=== PATIENT | female | born 1970 | race Caucasian/White ===

== ENCOUNTER → 2017-11-30 15:40 | Outpatient (CLI) | payer BC, SELFPAY ==
--- NOTE | 2017-11-30 15:45 | RAD_ITS ---
STUDY: X-RAY - ABDOMEN/PELVIS REASON FOR EXAM: Female, 47 years old. Left lower quadrant pain. History of stones. TECHNIQUE: AP supine and upright views of the abdomen and pelvis. COMPARISON: None. FINDINGS: Normal visualized lung bases. There is an abundance of fecal material throughout the colon. There is no demonstrated free abdominal air. The visualized liver, spleen and kidneys are grossly normal in size and morphology. Normal soft tissue structures. Normal visualized osseous structures. RAD/Abd Inc Decub and/or Erect IMPRESSION: Extensive fecal retention throughout the colon. No evidence of renal stones. Electronically Signed: Brock Knapp DO at 16:33 EST Tel , Service support ,
[2017-11-30 17:43] LABS: Absolute Lymphocyte Count 1.68 X10^3/ul (0.83-4.51); Absolute Neutrophil Count 4.1 X10^3/uL (2.0-7.7); Basophil# 0.06 X10^3/uL; Basophil% 0.9 % (0-1); Eosinophil# 0.24 X10^3/uL; Eosinophils% 3.6 % (0-5); Hematocrit 40.7 % (37-47); Hemoglobin 12.9 g/dl (12.0-15.0); Lymphocyte # 1.68 X10^3/ul (4.0); Lymphocyte % 25.4 % (19-41); Mean Corp Hgb Conc 31.7 g/gl (32-36); Mean Corpuscular Hgb 32.2 pg (27.0-32.0); Mean Corpuscular Volume 101.5 fL (81-99); Mean Platelet Vol. 10.2 fl (6.2-12.0); Monocyte# 0.56 X10^3/uL; Monocyte% 8.5 % (0-10); Neutrophil # 4.06 X10^3/uL (2.7-7.7); Neutrophil % 61.4 % (47-70); Platelet Count 306 K/mm3 (150-450); RBC Distribution Width CV 13.3 % (11.6-14.6); Red Blood Count 4.01 M/mm3 (4.2-5.4); White Blood Count 6.6 K/mm3 (4.4-11.0)
[2017-11-30 17:48] LABS: POSITIVE COUNT NO; POSITIVE DIFFERENTIAL NO; POSITIVE MORPHOLOGY NO
[2017-11-30 18:02] LABS: ALB/GLOB Ratio 0.9 RATIO (0.9-2.4); AST(SGOT) 15 U/L (15-37); Alanine Aminotransfer ALT/SGPT 23 U/L (13-56); Albumin, Serum 3.5 g/dL (3.2-5.0); Alkaline Phosphatase 107 U/L (45-117); Anion Gap 9 (5-15); BUN 16 mg/dL (7-18); BUN/Creat Ratio 17.7 RATIO (10-20); Chloride 108 mmol/L (98-107); EST Glomerular Filtration Rate 70 mL/min (>60); Est Glom Filt Rate - Afr Amer 85 mL/min (>60); Globulin 3.8 g/dL (2.2-4.2); Glucose 87 mg/dL (70-110); Potassium 4.5 mmol/L (3.5-5.1); Protein, Total 7.3 g/dL (6.4-8.2); Sodium Level 142 mmol/L (136-145)
== END ==
PROVIDERS: Family Provider Family Medicine; PCP Family Medicine; Visit Provider Family Medicine
DX: R10.9 Unspecified abdominal pain (principal)
CPT/HCPCS: 36415; 74019; 80053; 85025

== ENCOUNTER 2018-03-05 12:48 | Emergency (ER) | payer BC, SELFPAY ==
[2018-03-05] VITALS (7 sets, daily range): BP systolic 113–146; BP diastolic 64–93; PULSE 81–112; RESP 16–20; TEMP 36.8; O2SAT 93–98; BMI 28.2
[2018-03-05] MEDS: Racepinephrine HCl 0.5 ML VIAL.NEB. INHALATION (12:49)
[2018-03-05] MEDS: MethylPREDNISolone 125 MG/2 ML Vial IV (13:03)
--- NOTE | 2018-03-05 13:47 | ED.DCSUM_ITS ---
- ER Visit Summary Date of Service: 03/05/18 Chief Complaint: Allergic reaction History of Present Illness: The patient is a 47 F who presents with anaphylactic reaction that began today. Patient ate a cup cake and then noticed there was a knot in the cupcake. 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 Patient immediately developed some shortness of breath and difficulty swallowing. Patient states it felt like her throat was closing up. Patient was given 2 EpiPen injections and a dose of oral Benadryl. Patient was starting to feel better. Patient states that she felt like her throat was getting worse. EMS then administered 0.5 mg of epinephrine subcu. Patient was feeling better upon arrival to the emergency department. Patient stated that it felt like her throat was opening back up. Physical Examination: Vital signs show temperature 98.2 pulse 107 respiratory rate of 20 and pulse ox 98% on room air. Patient was in mild respiratory distress. Oral mucosa is pink and moist. Oropharynx is clear. Airway is patent. Neck is supple. There is no JVD noted. Heart was regular and tachycardic. Lungs were diminished bilaterally. There is good respiratory effort noted. Abdomen is soft. Bowel sounds are normal. There is no tenderness. Skin is warm and dry. There are a few urticaria noted over the face. The remaining physical exam is within normal limits. Emergency Department Course and Treatment: Patient was given Solu-Medrol and Pepcid here. Patient was feeling better on reevaluation. After approximately 3 hours of observation the patient felt like her throat was swelling again. Patient was given a dose of Benadryl. Patient will continued to be observed. Impression: Anaphylaxis This note was generated with [employer] dictation software. It may contain incorrect words, spelling, and punctuation that were not noted in review of the chart prior to signing ED Disposition - Plan for ED Patient: Chief Complaint: Allergic Reaction Diagnosis: Anaphylaxis due to food Referrals: Jay Jay Reid MD [Primary Care Provider] -
[2018-03-05] MEDS: Acetaminophen 500 MG Tablet 1000 MG PO (14:41)
[2018-03-05] MEDS: DiphenhydrAMINE 50 MG/ML Syringe 25 MG IV (16:37)
--- NOTE | 2018-03-05 18:43 | ED.DCSUM_ITS ---
- ER Visit Summary Date of Service: 03/05/18 Chief Complaint: [Addendum to initial dictation by Dr. Parag Benton] History of Present Illness: The patient is a 47 F [presented with an anaphylactic-like reaction to nuts and food. Care of patient turned over to me after patient had been here for about 4 hours awaiting continued observation after patient being medicated with Benadryl as well as steroids and EpiPen. After approximately 6 hours of total observation patient feeling completely resolved at this time is asymptomatic. Patient will be dispensed an EpiPen and I will write a prescription for prednisone for 3 days.] Physical Examination: [] Test Results: [] Emergency Department Course and Treatment: [] Treatment Plan: [] Disposition: [Discharged home stable condition] Impression: [Allergic reaction to nuts This note was generated with [employer] dictation software. It may contain incorrect words, spelling, and punctuation that were not noted in review of the chart prior to signing ED Disposition - Plan for ED Patient: Chief Complaint: Allergic Reaction Diagnosis: Anaphylaxis due to food Referrals: Jay Jay Reid MD [Primary Care Provider] -
--- NOTE | 2018-03-05 18:43 | ED.DEP ---
ED Disposition - Plan for ED Patient: Chief Complaint: Allergic Reaction Diagnosis: Anaphylaxis due to food Instructions: ED Allergic React Food Prescriptions: Prednisone [Deltasone] 20 mg PO BID #6 tab Referrals: Jay Jay Reid MD [Primary Care Provider] - 3-5 Days
== END 2018-03-05 19:13 | disposition home or self-care (01) ==
PROVIDERS: Emergency Provider Emergency Medicine; Family Provider Family Medicine; PCP Family Medicine
DX: T78.05XA Anaphylactic reaction due to tree nuts and seeds, initial encounter (principal); Z87.892 Personal history of anaphylaxis
CPT/HCPCS: 94640; 96365; 96372; 96375; 99285; J7030; A4216

== ENCOUNTER 2018-06-11 12:26 | Inpatient (IN) | payer BC, SELFPAY ==
[2018-06-11] VITALS (29 sets, daily range): BP systolic 105–159; BP diastolic 65–121; PULSE 78–113; RESP 12–23; TEMP 36.8–37; O2SAT 96–100; BMI 34.4; BMI 32.8
[2018-06-11] MEDS: Rocuronium Bromide 50 MG/5 ML Vial 100 MG IV (12:30)
[2018-06-11] MEDS: Propofol 10MG/Ml 1,000 MG/100 ML Bottle 2.901 MG CONT INF ×3 (12:47→21:03)
[2018-06-11 12:57] LABS: Absolute Neutrophil Count 4.6 X10^3/uL (2.0-7.7); Basophil# 0.02 X10^3/uL; Basophil% 0.2 % (0-1); Eosinophils% 2.4 % (0-5); Hematocrit 45.3 % (37-47); Hemoglobin 14.6 g/dl (12.0-15.0); Lymphocyte % 35.5 % (19-41); Mean Corp Hgb Conc 32.2 g/gl (32-36); Mean Corpuscular Hgb 31.8 pg (27.0-32.0); Mean Corpuscular Volume 98.7 fL (81-99); Mean Platelet Vol. 9.1 fl (6.2-12.0); Monocyte# 0.64 X10^3/uL; Monocyte% 7.6 % (0-10); Neutrophil # 4.57 X10^3/uL (2.7-7.7); Neutrophil % 54.1 % (47-70); Platelet Count 319 K/mm3 (150-450); RBC Distribution Width CV 13.1 % (11.6-14.6); RBC Distribution Width SD 47.2 fl (35.1-43.9); Red Blood Count 4.59 M/mm3 (4.2-5.4); White Blood Count 8.5 K/mm3 (4.4-11.0)
[2018-06-11 12:58] LABS: POSITIVE COUNT NO; POSITIVE DIFFERENTIAL NO; POSITIVE MORPHOLOGY NO
[2018-06-11 13:04] LABS: Anion Gap 8 (5-15); BUN 13 mg/dL (7-18); BUN/Creat Ratio 11.3 RATIO (10-20); Calcium,Total 8.9 mg/dL (8.5-10.1); Chloride 103 mmol/L (98-107); Creatinine, Serum 1.15 mg/dL (0.55-1.02); EST Glomerular Filtration Rate 53 mL/min (>60); Est Glom Filt Rate - Afr Amer 64 mL/min (>60); Glucose 103 mg/dL (74-106); Potassium 3.9 mmol/L (3.5-5.1); Sodium Level 138 mmol/L (136-145)
--- NOTE | 2018-06-11 13:07 | ED.VISSUMM ---
- ER Visit Summary Date of Service: 06/11/18 Chief Complaint: Anaphylaxis History of Present Illness: The patient is a 47 F who presents with anaphylaxis. Patient ate a miranda pit today. 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 He evaluated the patient and gave her 3 rounds of epinephrine and Benadryl. She was having stridor at that time and facial swelling. He then called EMS to transport the patient here. She does have a history of a nut allergy and the patient has had to be intubated before because of this. She gives minimal history as she is becoming lethargic. Physical Examination: Vital signs are reviewed and are significant for tachycardia and tachypnea. HEENT exam reveals no significant tongue swelling. She does have facial swelling. There is positive stridor with tracheal tug. Heart is tachycardic and regular rhythm without murmurs. Lungs have bilateral wheezing. Abdomen soft nontender. Neurologic exam reveals no acute findings except for some lethargy Test Results: Pending Emergency Department Course and Treatment: IV was established. Patient was given 1 intramuscular epinephrine here via EpiPen. She was then sedated with ketamine and rocuronium. She was intubated with a 7-0 endotracheal tube. This was done by using a glide scope. [place] scope visualization did not show any epiglottic or laryngeal cord edema. She was started on epinephrine drip. Propofol for sedation. Patient was discussed with Dr. Jason and Dr. Reyna for admission to the ICU Treatment Plan: Admit to the ICU. Patient was also given Pepcid Disposition: Admit Impression: Anaphylaxis This note was generated with [employer] dictation software. It may contain incorrect words, spelling, and punctuation that were not noted in review of the chart prior to signing ED Disposition - Plan for ED Patient: Chief Complaint: Shortness of Breath Referrals: Jay Jay Reid MD [Primary Care Provider] -
--- NOTE | 2018-06-11 13:10 | ED.DCSUM_ITS ---
- ER Visit Summary Date of Service: 06/11/18 Chief Complaint: Anaphylaxis History of Present Illness: The patient is a 47 F who presents with anaphylaxis. Patient ate a miranda pit today. 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 He evaluated the patient and gave her 3 rounds of epinephrine and Benadryl. She was having stridor at that time and facial swelling. He then called EMS to transport the patient here. She does have a history of a nut allergy and the patient has had to be intubated before because of this. She gives minimal history as she is becoming lethargic. Physical Examination: Vital signs are reviewed and are significant for tachycardia and tachypnea. HEENT exam reveals no significant tongue swelling. She does have facial swelling. There is positive stridor with tracheal tug. Heart is tachycardic and regular rhythm without murmurs. Lungs have bilateral wheezing. Abdomen soft nontender. Neurologic exam reveals no acute findings except for some lethargy Test Results: Pending Emergency Department Course and Treatment: IV was established. Patient was given 1 intramuscular epinephrine here via EpiPen. She was then sedated with ketamine and rocuronium. She was intubated with a 7-0 endotracheal tube. This was done by using a glide scope. [place] scope visualization did not show any epiglottic or laryngeal cord edema. She was started on epinephrine drip. Propofol for sedation. Patient was discussed with Dr. Jason and Dr. Reyna for admission to the ICU Treatment Plan: Admit to the ICU. Patient was also given Pepcid Disposition: Admit Impression: Anaphylaxis This note was generated with [employer] dictation software. It may contain incorrect words, spelling, and punctuation that were not noted in review of the chart prior to signing ED Disposition - Plan for ED Patient: Chief Complaint: Shortness of Breath Referrals: Jay Jay Reid MD [Primary Care Provider] -
[2018-06-11 13:35] LABS: Base Excess -1 mmol/L (-2 to +2); Bicarbonate 24.7 mmol/L (22-26); Blood Gas Specimen Type ART; FI02 50; Mode A-C; O2 Delivery Device Vent; PEEP 5; PO2 118 mmHG (75-100); RR 16; SITE R Radial; SO2 98 % (95-99); Time Given 1326; Total Carbon Dioxide 26 mmol/L; Vt 450; pCO2 45.1 mmHg (35-45); pH 7.35 (7.35-7.45)
--- NOTE | 2018-06-11 13:41 | RAD_ITS ---
STUDY: X-RAY CHEST REASON FOR EXAM: Female, 47 years old. Cough TECHNIQUE: Single frontal view COMPARISON: April 05, 2014 FINDINGS: Endotracheal tube with tip 25 mm above the dayana. Nasogastric tube extends into the upper abdomen with its sidehole at the distal esophagus and should be advanced another 8 to 9 cm. The lungs are not fully expanded. Possible left perihilar interstitial infiltrate. Normal size heart. Normal mediastinum and saadia. Slightly prominent central pulmonary arteries. Normal visualized aortic arch and descending thoracic aorta. Normal visualized thoracic spine. Normal visualized ribs, clavicles, and shoulders. There is no demonstrated abnormality of the visualized soft tissue structures of the upper abdomen. RAD/Chest 1 View (Portable) IMPRESSION: Possible left perihilar interstitial infiltrate. Slightly prominent central pulmonary vasculature. Nasogastric tube should be advanced another 8 to 9 cm. Electronically Signed: Luis Sidhu DO at 13:45 EDT Tel [phone], Service support ,
--- NOTE | 2018-06-11 13:48 | PCM.HP.STD ---
Problem List (1) Anaphylaxis Status: Acute History of Present Illness Date of Admission: 06/11/18 Chief Complaint: anaphylaxis The patient is a 47 year old F was at work and then had miranda with the seed and started having in and lactic reaction. Patient received epinephrine and put on a drip in the emergency room. Patient was intubated for airway protection. Patient did receive Pepcid as well. Patient's son is at bedside and stated the patient had a reaction to some carrot cake that had walnuts in it about 3 months ago. Prior to that, patient had not had a severe allergic reaction about 10 years. [] Past Medical History Allergies latex Allergy (Verified 03/05/18 12:53) Unknown peanut Allergy (Verified 03/05/18 12:53) Anaphylaxis Home Medications: Ambulatory Orders Medication Instructions Recorded Fluoxetine HCl [Prozac] 60 mg PO DAILY 04/30/17 Warfarin [Coumadin ([facility]KC)] 2 mg PO DAILY 04/30/17 Bupropion HCl [Wellbutrin Sr] 150 mg PO BID 03/05/18 Surgical History: noncontributory Smoking Status: Never smoker Review of Systems Comment: Unable to obtain accurate review of systems, past medical history, past surgical history, social history, family history as the patient is intubated and sedated at this time. VTE Information - Inpt Only VTE Present on Admission: No VTE Mechan Device Prophylaxis: [facility] [place] Prophylaxis ordered?: Yes Patient Problems: Active and Suspected Problems Anaphylaxis (Acute) - Physical Exam General: - - Intubated and sedated HEENT: Atraumatic, Normocephalic Oral: - - Endotracheal tube in place Neck: Negative Hepatojugular Reflux, Thyroid Normal Size and Texture Lungs: Clear to auscultation, Diminished Cardiovascular: Regular rate, Regular Rhythm, Normal S1, Normal S2, No murmurs Abdomen: Bowel Sounds Present, Soft, Non Tender, Non-Distended, No Hepato-splenomegaly Extremities: No edema, No Calf Tenderness Skin: No rashes, No breakdown Musculoskeletal: No Tenderness to Palpation of Joints or Extremities, No Muscle Wasting Neurological: - - No clonus DTRs are 1 out 4 and lower extremities bilaterally Psych/Mental Status: - Vital Signs Pulse Resp BP Pulse Ox 92 16 139/85 H 100 06/11/18 13:34 06/11/18 13:34 06/11/18 13:34 06/11/18 13:34 Oxygen Delivery Method Mechanical Ventilator Weight: 96.7 kg Body Mass Index (BMI) 34.4 Laboratory Tests Past 24 Hrs 06/11/18 06/11/18 06/11/18 12:46 12:46 13:27 WBC 8.5 RBC 4.59 Hgb 14.6 Hct 45.3 MCV 98.7 MCH 31.8 MCHC 32.2 RDW 13.1 RDW Differential 47.2 H Plt Count 319 MPV 9.1 Immature Gran % (Auto) 0.200 Neut % (Auto) 54.1 Lymph % (Auto) 35.5 [place] % (Auto) 7.6 Eos % (Auto) 2.4 Baso % (Auto) 0.2 Absolute Neuts (auto) 4.6 Absolute Lymphs (auto) 3.00 Total Counted Not Reportable Specimen Type ART Sample Site R Radial pH 7.35 Bicarbonate Actual 24.7 POC Total CO2 26 Base Excess -1 O2 Saturation 98 O2 % 50 ABG pCO2 45.1 H ABG pO2 118 H Respiration Rate 16 O2 Delivery Device Vent Vent Mode A-C Tidal Volume 450 POC PEEP 5 Blood Gas Notified Whom ED MD Blood Gas Notified Time 1326 Sodium 138 Potassium 3.9 Chloride 103 Carbon Dioxide 27.0 Anion Gap 8 BUN 13 Creatinine 1.15 H Estim Creat Clear Calc 55.40 Est GFR (MDRD) Af Amer 64 Est GFR (MDRD) Non-Af 53 L BUN/Creatinine Ratio 11.3 Glucose 103 Calcium 8.9 Chest x-ray reviewed and showed endotracheal tube in place. Bilateral patchy infiltrates. Assessment/Plan All Active Problems Anaphylaxis (Acute) 1. Anaphylaxis Secondary to miranda seed Emergency room, patient received an EpiPen, Pepcid and an epinephrine drip. Patient was intubated for airway protection Will continue with the epinephrine drip plus Solu-Medrol plus scheduled Pepcid and Benadryl Patient will need to follow-up with allergy as outpatient Patient will need an EpiPen upon discharge if she does not have one already 2. Suspected aspiration pneumonia Patient will be on a pulmonary toilet Aerosols And empiric Unasyn 3. DVT prophylaxis Patient will have SCDs. Patient is on Coumadin but INR has not been checked yet. Additional medical records will be requested through Dr. Reid's office as patient is on numerous psychiatric medications plus warfarin for reasons I do not know at this time. Code Visit Inpatient E&M: 97232 Init Hosp L3
--- NOTE | 2018-06-11 13:53 | HP.PCM_ITS ---
Problem List (1) Anaphylaxis Status: Acute History of Present Illness Date of Admission: 06/11/18 Chief Complaint: anaphylaxis The patient is a 47 year old F was at work and then had miranda with the seed and started having in and lactic reaction. Patient received epinephrine and put on a drip in the emergency room. Patient was intubated for airway protection. Patient did receive Pepcid as well. Patient's son is at bedside and stated the patient had a reaction to some carrot cake that had walnuts in it about 3 months ago. Prior to that, patient had not had a severe allergic reaction about 10 years. [] Past Medical History Allergies latex Allergy (Verified 03/05/18 12:53) Unknown peanut Allergy (Verified 03/05/18 12:53) Anaphylaxis Home Medications: Ambulatory Orders Medication Instructions Recorded Fluoxetine HCl [Prozac] 60 mg PO DAILY 04/30/17 Warfarin [Coumadin ([facility]KC)] 2 mg PO DAILY 04/30/17 Bupropion HCl [Wellbutrin Sr] 150 mg PO BID 03/05/18 Surgical History: noncontributory Smoking Status: Never smoker Review of Systems Comment: Unable to obtain accurate review of systems, past medical history, past surgical history, social history, family history as the patient is intubated and sedated at this time. VTE Information - Inpt Only VTE Present on Admission: No VTE Mechan Device Prophylaxis: [facility] [place] Prophylaxis ordered?: Yes Patient Problems: Active and Suspected Problems Anaphylaxis (Acute) - Physical Exam General: - - Intubated and sedated HEENT: Atraumatic, Normocephalic Oral: - - Endotracheal tube in place Neck: Negative Hepatojugular Reflux, Thyroid Normal Size and Texture Lungs: Clear to auscultation, Diminished Cardiovascular: Regular rate, Regular Rhythm, Normal S1, Normal S2, No murmurs Abdomen: Bowel Sounds Present, Soft, Non Tender, Non-Distended, No Hepato- splenomegaly Extremities: No edema, No Calf Tenderness Skin: No rashes, No breakdown Musculoskeletal: No Tenderness to Palpation of Joints or Extremities, No Muscle Wasting Neurological: - - No clonus DTRs are 1 out 4 and lower extremities bilaterally Psych/Mental Status: - Vital Signs Pulse Resp BP Pulse Ox 92 16 139/85 H 100 06/11/18 13:34 06/11/18 13:34 06/11/18 13:34 06/11/18 13:34 Oxygen Delivery Method Mechanical Ventilator Weight: 96.7 kg Body Mass Index (BMI) 34.4 Laboratory Tests Past 24 Hrs 06/11/18 06/11/18 06/11/18 12:46 12:46 13:27 WBC 8.5 RBC 4.59 Hgb 14.6 Hct 45.3 MCV 98.7 MCH 31.8 MCHC 32.2 RDW 13.1 RDW Differential 47.2 H Plt Count 319 MPV 9.1 Immature Gran % (Auto) 0.200 Neut % (Auto) 54.1 Lymph % (Auto) 35.5 [place] % (Auto) 7.6 Eos % (Auto) 2.4 Baso % (Auto) 0.2 Absolute Neuts (auto) 4.6 Absolute Lymphs (auto) 3.00 Total Counted Not Reportable Specimen Type ART Sample Site R Radial pH 7.35 Bicarbonate Actual 24.7 POC Total CO2 26 Base Excess -1 O2 Saturation 98 O2 % 50 ABG pCO2 45.1 H ABG pO2 118 H Respiration Rate 16 O2 Delivery Device Vent Vent Mode A-C Tidal Volume 450 POC PEEP 5 Blood Gas Notified Whom ED MD Blood Gas Notified Time 1326 Sodium 138 Potassium 3.9 Chloride 103 Carbon Dioxide 27.0 Anion Gap 8 BUN 13 Creatinine 1.15 H Estim Creat Clear Calc 55.40 Est GFR (MDRD) Af Amer 64 Est GFR (MDRD) Non-Af 53 L BUN/Creatinine Ratio 11.3 Glucose 103 Calcium 8.9 Chest x-ray reviewed and showed endotracheal tube in place. Bilateral patchy infiltrates. Assessment/Plan All Active Problems Anaphylaxis (Acute) 1. Anaphylaxis * Secondary to miranda seed * Emergency room, patient received an EpiPen, Pepcid and an epinephrine drip. Patient was intubated for airway protection * Will continue with the epinephrine drip plus Solu-Medrol plus scheduled Pepcid and Benadryl * Patient will need to follow-up with allergy as outpatient * Patient will need an EpiPen upon discharge if she does not have one already 2. Suspected aspiration pneumonia * Patient will be on a pulmonary toilet * Aerosols * And empiric Unasyn 3. DVT prophylaxis * Patient will have SCDs. Patient is on Coumadin but INR has not been checked yet. Additional medical records will be requested through Dr. Reid's office as patient is on numerous psychiatric medications plus warfarin for reasons I do not know at this time. Code Visit Inpatient E&M: 54530 Init Hosp L3
--- NOTE | 2018-06-11 15:07 | PCM.CON.CC ---
Problem List (1) Depression Status: Acute Qualifiers: Depression Type: major depressive disorder Major depression recurrence: recurrent Active/Remission status: in remission of unspecified degree Qualified Code(s): F33.40 - Major depressive disorder, recurrent, in remission, unspecified (2) Anxiety Status: Chronic (3) Anaphylaxis Status: Acute Qualifiers: Encounter type: initial encounter Qualified Code(s): T78.2XXA - Anaphylactic shock, unspecified, initial encounter Reason for Consult Date of Consultation: 06/11/18 Reason for Consultation: Anaphylaxis History of Present Illness: The patient is a 47 year old F, with past medical history listed below, who works at Dr[employer] office and reportedly ate a grove pit. Per Dr. Reid, patient started to develop stridor and shortness of breath approximately 5 minutes after exposure. Patient was treated with epinephrine IM and Benadryl. Patient reportedly became less responsive, but did respond to an additional epinephrine dose. EMS was called and patient was transported emergently to the emergency room. In the emergency room, patient was given another dose of epinephrine, sedated with ketamine and rocuronium and intubated with a 7-0 endotracheal tube. Did discuss with ER attending and patient reportedly had no vocal cord swelling or epiglottic edema. No macroglossia was appreciated. Patient was placed on propofol. I did evaluate the patient in the emergency room and patient was not noted to have any facial swelling. Care staff was unclear on whether there was significant improvement compared to presentation. Patient was noted to have peak airway pressures of approximately 18 and was on an epinephrine drip with adequate blood pressure and heart rate. Patient's son is at the bedside. Patient reportedly had an anaphylactic reaction approximately 3 months ago related to a walnut in carrot cake. At that time, patient had significant facial and tongue swelling. Patient does have a history of severe sensitivity to latex with symptoms developing upon touching a banana. Patient is unable to provide a review of systems as she is intubated during my evaluation. Past Medical History Past Medical History (Chronic Problems): Chronic Problems Anxiety (Chronic) Allergies latex Allergy (Verified 03/05/18 12:53) Unknown peanut Allergy (Verified 03/05/18 12:53) Anaphylaxis Home Medications: Ambulatory Orders Medication Instructions Recorded Fluoxetine HCl [Prozac] 60 mg PO DAILY 04/30/17 Warfarin [Coumadin (PBKC)] 2 mg PO DAILY 04/30/17 Bupropion HCl [Wellbutrin Sr] 150 mg PO BID 03/05/18 Surgical History: noncontributory Smoking Status: Former smoker Tobacco Use: Cigarettes Review of Systems Unable to obtain accurate/complete ROS d/t: Intubated and sedated Patient Problems: Active and Suspected Problems Anaphylaxis (Acute) Depression (Acute) Objective: Chest x-ray was personally reviewed and shows a high OG tube. Endotracheal tube is in appropriate position. There is a possible superior segment of the right lower lobe infiltrate noted. - Physical Exam General: - - Intubated, sedated and paralyzed. Good vent synchrony noted. Obese. HEENT: Atraumatic, Normocephalic, - - No scleral edema or icterus noted. Oral: Moist Mucosa, No Gingival or Mucosal Lesions/ Ulcerations, - - No tongue trauma appreciated Neck: Supple, No JVD, No Nodes, Trachea Midline Lungs: No wheeze, No rales, Rhonchi - Bilateral, - - Symmetric expansion. No dullness to percussion. Cardiovascular: Normal S1, Normal S2, No murmurs, No rub noted, No Gallop, Tachycardic Abdomen: Bowel Sounds Present, Soft, Non Tender, Non-Distended, Obese Extremities: No clubbing, No cyanosis, No edema, Capillary Refill Less than 3 Seconds Skin: No rashes, No breakdown, - - No urticaria or erythema appreciated Musculoskeletal: No Tenderness to Palpation of Joints or Extremities, No Muscle Wasting Lymphatic: No Cervical, Supraclavicular, or Inguinal Adenopathy Neurological: - - Mild spontaneous movement of the right lower extremity. Sensation appears intact. Psych/Mental Status: Flat Affect Vital Signs Pulse Resp BP Pulse Ox 107 H 12 140/96 H 100 06/11/18 14:30 06/11/18 14:30 06/11/18 14:30 06/11/18 14:00 Oxygen Delivery Method Mechanical Ventilator Laboratory Tests 06/11/18 06/11/18 06/11/18 12:46 12:46 13:27 WBC 8.5 RBC 4.59 Hgb 14.6 Hct 45.3 MCV 98.7 MCH 31.8 MCHC 32.2 RDW 13.1 RDW Differential 47.2 H Plt Count 319 MPV 9.1 Immature Gran % (Auto) 0.200 Neut % (Auto) 54.1 Lymph % (Auto) 35.5 [place] % (Auto) 7.6 Eos % (Auto) 2.4 Baso % (Auto) 0.2 Absolute Neuts (auto) 4.6 Absolute Lymphs (auto) 3.00 Total Counted Not Reportable Specimen Type ART Sample Site R Radial pH 7.35 Bicarbonate Actual 24.7 POC Total CO2 26 Base Excess -1 O2 Saturation 98 O2 % 50 ABG pCO2 45.1 H ABG pO2 118 H Respiration Rate 16 O2 Delivery Device Vent Vent Mode A-C Tidal Volume 450 POC PEEP 5 Blood Gas Notified Whom ED Blood Gas Notified Time 1326 Sodium 138 Potassium 3.9 Chloride 103 Carbon Dioxide 27.0 Anion Gap 8 BUN 13 Creatinine 1.15 H Estim Creat Clear Calc 55.40 Est GFR (MDRD) Af Amer 64 Est GFR (MDRD) Non-Af 53 L BUN/Creatinine Ratio 11.3 Glucose 103 Calcium 8.9 Clinical Impression(s) from Imaging Studies Chest X-Ray 06/11/18 13:41 IMPRESSION: Possible left perihilar interstitial infiltrate. Slightly prominent central pulmonary vasculature. Nasogastric tube should be advanced another 8 to 9 cm. Electronically Signed: Luis Sidhu DO at 13:45 EDT Tel [phone], Service support , Assessment/Plan Active and Suspected Problems Anaphylaxis (Acute) Depression (Acute) RECOMMENDATIONS: 1. Pepcid, Benadryl and steroid therapy 2. Attempt to discontinue epinephrine drip 3. Wean oxygen as tolerated 4. Continue empiric antibiotics pending culture results 5. Spontaneous breathing and awakening trials per protocol IMPRESSIONS: 1. Possible anaphylactic reaction Patient reportedly had consumed a [place] seed. Patient has received multiple doses of epinephrine and Benadryl. Patient was intubated for airway protection given stridor. Peak airway pressures of approximately 18 noted. No urticarial findings at this time. Patient does have a known not and latex allergy. Will attempt to wean off of epinephrine. Continue with Benadryl, Pepcid and steroid therapy. Spontaneous breathing and awakening trials per protocol. Cannot exclude an aspiration event with stridor secondary to grove pit. Unfortunately, patient's endotracheal tube is not large enough to facilitate a bronchoscopy. 2. Possible aspiration pneumonia Sputum culture will be obtained. Patient does appear to have an infiltrate in the superior segment of the right lower lobe on chest x-ray. Patient is on empiric antibiotics for now. Continue with aerosol therapy. 3. Anxiety/depression Complicates care, management, recovery and prognosis. TIME: 33 minutes critical care time spent addressing patient's possible anaphylactic reaction, ventilator management, review of all data and collaboration with care team. (2:25 PM to 3:15 PM) Code Visit 9xxxx: [id number] Critical care first hour
--- NOTE | 2018-06-11 15:33 | RAD_ITS ---
STUDY: X-RAY CHEST REASON FOR EXAM: Female, 47 years old. OG tube placement TECHNIQUE: Single frontal view COMPARISON: June 11, 2018 FINDINGS: Endotracheal tube with tip 8 mm above the dayana. An OG tube has extended further into the stomach since the prior study. The lungs are expanded. Mild basilar interstitial prominence.. Normal size heart. Normal mediastinum and saadia. Normal pulmonary arteries. Normal visualized aortic arch and descending thoracic aorta. Normal visualized thoracic spine. Normal visualized ribs, clavicles, and shoulders. There is no demonstrated abnormality of the visualized soft tissue structures of the upper abdomen. RAD/Chest 1 View (Portable) IMPRESSION: Basilar interstitial prominence. Electronically Signed: Luis Sidhu DO at 19:28 EDT Tel [phone], Service support ,
[2018-06-11] MEDS: LORazepam 2 MG/ML Syringe IV (16:30)
--- NOTE | 2018-06-11 16:30 | NURSING ---
this RN pushed Ativan 2mg IV through peripheral IV, as the last of the med was being pushed in, noticed that the med was running out under the drsg onto the restraint. checked w a saline flush, all appeared to run out around the IV site. Dr. Jason notified. OK to given second dose of Ativan 2mg IV.
[2018-06-11 17:20] LABS: International Normalized Ratio 1.6; Prothrombin Time (Protime)PT. 18.6 SECONDS (11.7-14.9)
--- NOTE | 2018-06-11 17:20 | NURSING ---
RNs x3 have unsuccessfully attempted to start an second IV
[2018-06-11] MEDS: MethylPREDNISolone 125 MG/2 ML Vial 60 MG IV ×2 (17:35→23:46)
[2018-06-11] MEDS: DiphenhydrAMINE 50 MG/ML Syringe IV ×2 (17:35→23:47)
[2018-06-11 19:25] LABS: M R Staph aureus DNA By PCR Negative (Negative); Probe Check PASS; Specimen Processing Control PASS
[2018-06-11] MEDS: Chlorhexidine 15 ML PO (21:12)
[2018-06-11] MEDS: 0.9% Normal Saline 1,000 ML 125 ML IV (23:09)
[2018-06-12] VITALS (31 sets, daily range): BP systolic 89–137; BP diastolic 54–90; PULSE 67–97; RESP 10–18; TEMP 36.3–37.4; O2SAT 93–100
[2018-06-12] MEDS: Propofol 10MG/Ml 1,000 MG/100 ML Bottle 2.901 MG CONT INF (02:22)
[2018-06-12 04:30] LABS: Hematocrit 42.2 % (37-47); Hemoglobin 13.7 g/dl (12.0-15.0); Mean Corp Hgb Conc 32.5 g/gl (32-36); Mean Corpuscular Hgb 31.9 pg (27.0-32.0); Mean Corpuscular Volume 98.4 fL (81-99); Mean Platelet Vol. 9.2 fl (6.2-12.0); Platelet Count 240 K/mm3 (150-450); RBC Distribution Width SD 46.8 fl (35.1-43.9); Red Blood Count 4.29 M/mm3 (4.2-5.4); White Blood Count 8.5 K/mm3 (4.4-11.0)
[2018-06-12 04:31] LABS: Scan Indicated on CBC? Y/N NO
[2018-06-12 04:33] LABS: International Normalized Ratio 1.6; Prothrombin Time (Protime)PT. 19.2 SECONDS (11.7-14.9)
[2018-06-12 04:43] LABS: Anion Gap 10 (5-15); BUN 12 mg/dL (7-18); Calcium,Total 7.9 mg/dL (8.5-10.1); Chloride 109 mmol/L (98-107); EST Glomerular Filtration Rate 62 mL/min (>60); Est Glom Filt Rate - Afr Amer 76 mL/min (>60); Estimated Creatinine Clearance 63.71 ml/min; Glucose 118 mg/dL (74-106); Potassium 4.3 mmol/L (3.5-5.1); Sodium Level 143 mmol/L (136-145)
[2018-06-12] MEDS: MethylPREDNISolone 125 MG/2 ML Vial 60 MG IV (05:50)
[2018-06-12] MEDS: DiphenhydrAMINE 50 MG/ML Syringe IV (05:51)
--- NOTE | 2018-06-12 06:41 | PCM.PN.INT ---
Subjective: Patient did well overnight. No acute issues were reported. Patient did qualify for a spontaneous breathing trial this morning, but this was held initially secondary to apnea. Patient does report some throat pain, but did have a positive leak this morning. General: Alert, Cooperative, - - Anxious. Appears stated age. HEENT: Atraumatic, PERRLA, EOMI, Normocephalic, - - Slight scleral injection without icterus Oral: Moist Mucosa, No Gingival or Mucosal Lesions/ Ulcerations Neck: Supple, No JVD, No Nodes, Trachea Midline Lungs: Clear to auscultation, Normal air movement, No rhonchi, No wheeze, No rales, - - Symmetric expansion. No dullness to percussion. Cardiovascular: Regular rate, Regular Rhythm, Normal S1, Normal S2, No murmurs, No rub noted, No Gallop Abdomen: Bowel Sounds Present, Soft, Non Tender, Non-Distended, Obese Extremities: No clubbing, No cyanosis, No edema Skin: No rashes, No breakdown, - - No urticaria appreciated Musculoskeletal: No Tenderness to Palpation of Joints or Extremities Lymphatic: No Cervical, Supraclavicular, or Inguinal Adenopathy Neurological: Cranial nerves II-XII grossly intact, Neuro grossly intact, Motor Exam 5/5 strength throughout Psych/Mental Status: Anxious, Restless Vital Signs Temp Pulse Resp BP Pulse Ox 36.6 C 87 14 137/90 H 100 06/12/18 06:00 06/12/18 06:00 06/12/18 06:00 06/12/18 06:00 06/12/18 06:00 Oxygen Flow Rate (L/min) 35 Oxygen Delivery Method Mechanical Ventilator Weight: 93.5 kg Body Mass Index (BMI) 32.8 Intake and Output for Last 24 Hours 06/10/18 06/11/18 06/12/18 23:59 23:59 23:59 Intake Total 379 / 379 1931 / 1931 Output Total 405 / 405 1100 / 1100 Balance -26 / -26 831 / 831 Labs (Last 48 Hours) 06/11/18 06/11/18 06/12/18 17:03 17:30 04:10 WBC 8.5 RBC 4.29 Hgb 13.7 Hct 42.2 MCV 98.4 MCH 31.9 MCHC 32.5 RDW 13.0 RDW Differential 46.8 H Plt Count 240 MPV 9.2 PT 18.6 H INR 1.6 Sodium Potassium Chloride Carbon Dioxide Anion Gap BUN Creatinine Estim Creat Clear Calc Est GFR (MDRD) Af Amer Est GFR (MDRD) Non-Af BUN/Creatinine Ratio Glucose Calcium MRSA (PCR) Negative 06/12/18 06/12/18 04:10 04:10 WBC RBC Hgb Hct MCV MCH MCHC RDW RDW Differential Plt Count MPV PT 19.2 H INR 1.6 Sodium 143 Potassium 4.3 Chloride 109 H Carbon Dioxide 24.0 Anion Gap 10 BUN 12 Creatinine 1.00 Estim Creat Clear Calc 63.71 Est GFR (MDRD) Af Amer 76 Est GFR (MDRD) Non-Af 62 BUN/Creatinine Ratio 12.0 Glucose 118 H Calcium 7.9 L MRSA (PCR) Clinical Impression(s) from Imaging Studies Chest X-Ray 06/11/18 13:41 IMPRESSION: Possible left perihilar interstitial infiltrate. Slightly prominent central pulmonary vasculature. Nasogastric tube should be advanced another 8 to 9 cm. Electronically Signed: Luis Sidhu DO at 13:45 EDT Tel [phone], Service support , Chest X-Ray 06/11/18 15:33 IMPRESSION: Basilar interstitial prominence. Electronically Signed: Luis Sidhu DO at 19:28 EDT Tel [phone], Service support , Medical Necessity - Tobacco Use Smoking Status: Former smoker Tobacco Use: Cigarettes Assessment/Plan All Active Problems Anaphylaxis (Acute) Depression (Acute) RECOMMENDATIONS: 1. Pepcid, Benadryl and steroid therapy 2. Repeat spontaneous breathing trial later today 3. Wean oxygen as tolerated 4. Continue empiric antibiotics pending culture results 5. Spontaneous breathing and awakening trials per protocol IMPRESSIONS: 1. Possible anaphylactic reaction Patient reportedly had consumed a [place] seed. Patient appears to be doing well at this time. Patient does have a leak, but apnea was noted on spontaneous breathing trial. This is likely secondary to medications. We will continue to hold. Reattempt spontaneous breathing trial in a couple of hours. Unable to evaluate airway secondary to small endotracheal tube size. Cannot exclude the need for an exploratory bronchoscopy if symptoms recur after extubation. Another possible etiology would be vocal cord dysfunction versus paralysis, as peak airway pressures are much improved following intubation. 2. Possible aspiration pneumonia Sputum culture obtained. Patient does appear to have an infiltrate in the superior segment of the right lower lobe on chest x-ray. Patient is on empiric antibiotics for now. Continue with aerosol therapy. 3. Anxiety/depression Complicates care, management, recovery and prognosis. TIME: 31 minutes critical care time spent addressing patient's possible anaphylactic reaction, ventilator management, review of all data and collaboration with care team. (5:30 AM to 6:30 AM) Code Visit 9xxxx: [id number] Critical care first hour
--- NOTE | 2018-06-12 06:45 | PN_ITS ---
Subjective: Patient did well overnight. No acute issues were reported. Patient did qualify for a spontaneous breathing trial this morning, but this was held initially secondary to apnea. Patient does report some throat pain, but did have a positive leak this morning. General: Alert, Cooperative, - - Anxious. Appears stated age. HEENT: Atraumatic, PERRLA, EOMI, Normocephalic, - - Slight scleral injection without icterus Oral: Moist Mucosa, No Gingival or Mucosal Lesions/ Ulcerations Neck: Supple, No JVD, No Nodes, Trachea Midline Lungs: Clear to auscultation, Normal air movement, No rhonchi, No wheeze, No rales, - - Symmetric expansion. No dullness to percussion. Cardiovascular: Regular rate, Regular Rhythm, Normal S1, Normal S2, No murmurs, No rub noted, No Gallop Abdomen: Bowel Sounds Present, Soft, Non Tender, Non-Distended, Obese Extremities: No clubbing, No cyanosis, No edema Skin: No rashes, No breakdown, - - No urticaria appreciated Musculoskeletal: No Tenderness to Palpation of Joints or Extremities Lymphatic: No Cervical, Supraclavicular, or Inguinal Adenopathy Neurological: Cranial nerves II-XII grossly intact, Neuro grossly intact, Motor Exam 5/5 strength throughout Psych/Mental Status: Anxious, Restless Vital Signs Temp Pulse Resp BP Pulse Ox 36.6 C 87 14 137/90 H 100 06/12/18 06:00 06/12/18 06:00 06/12/18 06:00 06/12/18 06:00 06/12/18 06:00 Oxygen Flow Rate (L/min) 35 Oxygen Delivery Method Mechanical Ventilator Weight: 93.5 kg Body Mass Index (BMI) 32.8 Intake and Output for Last 24 Hours 06/10/18 06/11/18 06/12/18 23:59 23:59 23:59 Intake Total 379 / 379 1931 / 1931 Output Total 405 / 405 1100 / 1100 Balance -26 / -26 831 / 831 Labs (Last 48 Hours) 06/11/18 06/11/18 06/12/18 17:03 17:30 04:10 WBC 8.5 RBC 4.29 Hgb 13.7 Hct 42.2 MCV 98.4 MCH 31.9 MCHC 32.5 RDW 13.0 RDW Differential 46.8 H Plt Count 240 MPV 9.2 PT 18.6 H INR 1.6 Sodium Potassium Chloride Carbon Dioxide Anion Gap BUN Creatinine Estim Creat Clear Calc Est GFR (MDRD) Af Amer Est GFR (MDRD) Non-Af BUN/Creatinine Ratio Glucose Calcium MRSA (PCR) Negative 06/12/18 06/12/18 04:10 04:10 WBC RBC Hgb Hct MCV MCH MCHC RDW RDW Differential Plt Count MPV PT 19.2 H INR 1.6 Sodium 143 Potassium 4.3 Chloride 109 H Carbon Dioxide 24.0 Anion Gap 10 BUN 12 Creatinine 1.00 Estim Creat Clear Calc 63.71 Est GFR (MDRD) Af Amer 76 Est GFR (MDRD) Non-Af 62 BUN/Creatinine Ratio 12.0 Glucose 118 H Calcium 7.9 L MRSA (PCR) Clinical Impression(s) from Imaging Studies Chest X-Ray 06/11/18 13:41 IMPRESSION: Possible left perihilar interstitial infiltrate. Slightly prominent central pulmonary vasculature. Nasogastric tube should be advanced another 8 to 9 cm. Electronically Signed: Luis Sidhu DO at 13:45 EDT Tel [phone], Service support , Chest X-Ray 06/11/18 15:33 IMPRESSION: Basilar interstitial prominence. Electronically Signed: Luis Sidhu DO at 19:28 EDT Tel [phone], Service support , Medical Necessity - Tobacco Use Smoking Status: Former smoker Tobacco Use: Cigarettes Assessment/Plan All Active Problems Anaphylaxis (Acute) Depression (Acute) RECOMMENDATIONS: 1. Pepcid, Benadryl and steroid therapy 2. Repeat spontaneous breathing trial later today 3. Wean oxygen as tolerated 4. Continue empiric antibiotics pending culture results 5. Spontaneous breathing and awakening trials per protocol IMPRESSIONS: 1. Possible anaphylactic reaction Patient reportedly had consumed a [place] seed. Patient appears to be doing well at this time. Patient does have a leak, but apnea was noted on spontaneous breathing trial. This is likely secondary to medications. We will continue to hold. Reattempt spontaneous breathing trial in a couple of hours. Unable to evaluate airway secondary to small endotracheal tube size. Cannot exclude the need for an exploratory bronchoscopy if symptoms recur after extubation. Another possible etiology would be vocal cord dysfunction versus paralysis, as peak airway pressures are much improved following intubation. 2. Possible aspiration pneumonia Sputum culture obtained. Patient does appear to have an infiltrate in the superior segment of the right lower lobe on chest x-ray. Patient is on empiric antibiotics for now. Continue with aerosol therapy. 3. Anxiety/depression Complicates care, management, recovery and prognosis. TIME: 31 minutes critical care time spent addressing patient's possible anaphylactic reaction, ventilator management, review of all data and collaboration with care team. (5:30 AM to 6:30 AM) Code Visit 9xxxx: [id number] Critical care first hour
[2018-06-12] MEDS: 0.9% Normal Saline 1,000 ML 125 ML IV ×3 (07:01→23:54)
[2018-06-12] MEDS: CHLORHEXIDINE GLUC 2% CLOTH 1 EACH TOWELETTE TOPICAL (07:03)
--- NOTE | 2018-06-12 08:06 | PCM.PN.HOSP ---
Patient Problems: Active and Suspected Problems Anaphylaxis (Acute) Depression (Acute) Subjective: Failed SBT, but may have been too sedated. Vitals/I&O's: Vital Signs Temp Pulse Resp BP Pulse Ox 36.6 C 87 12 132/90 H 98 06/12/18 06:00 06/12/18 07:10 06/12/18 07:00 06/12/18 07:00 06/12/18 07:00 Oxygen Flow Rate (L/min) 35 Oxygen Delivery Method Mechanical Ventilator Weight: 93.5 kg Body Mass Index (BMI) 32.8 Intake and Output for Last 24 Hours 06/10/18 06/11/18 06/12/18 23:59 23:59 23:59 Intake Total 379 / 379 1931 / 1931 Output Total 405 / 405 1100 / 1100 Balance -26 / - 831 / 831 General: Alert, No apparent distress, - - intubated HEENT: Atraumatic, Normocephalic Oral: Moist Mucosa, No Gingival or Mucosal Lesions/ Ulcerations Neck: No Nodes, Thyroid Normal Size and Texture Lungs: Clear to auscultation, No rhonchi, No wheeze, Diminished Cardiovascular: Regular rate, Regular Rhythm, Normal S1, Normal S2, No murmurs Abdomen: Bowel Sounds Present, Soft, Non Tender, Non-Distended, No Hepato-splenomegaly Extremities: No edema, No Calf Tenderness Skin: No rashes, No breakdown Psych/Mental Status: Normal Affect, Appropriate Laboratory Results 06/11/18 17:03: PT 18.6 H, INR 1.6 06/11/18 17:30: MRSA (PCR) Negative 06/12/18 04:10: WBC 8.5, RBC 4.29, Hgb 13.7, Hct 42.2, MCV 98.4, MCH 31.9, MCHC 32.5, RDW 13.0, RDW Differential 46.8 H, Plt Count 240, MPV 9.2 06/12/18 04:10: Sodium 143, Potassium 4.3, Chloride 109 H, Carbon Dioxide 24.0, Anion Gap 10, BUN 12, Creatinine 1.00, Estim Creat Clear Calc 63.71, Est GFR (MDRD) Af Amer 76, Est GFR (MDRD) Non-Af 62, BUN/Creatinine Ratio 12.0, Glucose 118 H, Calcium 7.9 L 08/11/18 04:10: PT 19.2 H, INR 1.6 Current Medications Acetaminophen (Tylenol Liquid) 1,000 mg GT Q8H PRN PRN Reason: PAIN Albuterol Sulfate (Ventolin Aerosols) 2.5 mg INHALATION Q2H PRN PRN PRN Reason: SHORTNESS OF BREATH Albuterol/Ipratropium (Duoneb) 3 ml INHALATION Q6HWA.RT [facility] Chlorhexidine Gluconate () 15 ml PO BID [facility] Last Admin: 06/11/18 21:12 Dose: 15 ml Chlorhexidine Gluconate () 1 each TOPICAL DAILY [facility] Last Admin: 06/12/18 07:03 Dose: 1 each Diphenhydramine HCl (Benadryl) 50 mg IV Q6H [facility] Last Admin: 06/12/18 05:51 Dose: 50 mg Propofol (Diprivan) 1,000 mg in 100 mls @ 2.901 mls/hr CONT INF .Q12H [facility]; 5 MCG/KG/MIN PRN Reason: Protocol Last Admin: 06/12/18 02:22 Dose: 2.901 mls/hr Sodium Chloride () 1,000 mls @ 125 mls/hr IV .Q8H [facility] Last Admin: 06/12/18 07:01 Dose: 125 mls/hr Ampicillin Sodium/Sulbactam (Sodium 3 gm/ Sodium Chloride) 112 mls @ 150 mls/hr IV Q8 [facility] Last Admin: 06/12/18 05:50 Dose: 150 mls/hr Famotidine 20 mg/ Sodium (Chloride) 10 mls @ 300 mls/hr IV Q12 [facility] Last Admin: 06/11/18 21:19 Dose: 300 mls/hr Sodium Chloride () 250 mls @ 15 mls/hr IV .[id number] PRN PRN Reason: SALINE FLUSH Fentanyl () 100 mls @ 2.5 mls/hr IV .Q40H [facility] PRN Reason: Protocol Last Admin: 06/12/18 02:23 Dose: 2.5 mls/hr Lorazepam (Ativan) 2 mg IV Q2H PRN PRN PRN Reason: ANXIETY/AGITATION Magnesium Hydroxide (Milk Of Magnesia) 30 ml PO DAILY PRN PRN PRN Reason: Constipation Methylprednisolone (Solu-Medrol) 60 mg IV Q6 [facility] Last Admin: 06/12/18 05:50 Dose: 60 mg Ondansetron HCl (Zofran) 4 mg IV Q8H PRN PRN PRN Reason: Nausea Sodium Chloride () 5 - 30 ml IV UD PRN PRN Reason: SALINE FLUSH Warfarin Sodium (Coumadin (Pbkc)) 2 mg GT DAILY@1700 [facility] Medical Necessity - Tobacco Use Smoking Status: Former smoker Tobacco Use: Cigarettes Assessment/Plan All Active Problems Anaphylaxis (Acute) Depression (Acute) 1. Anaphylaxis Secondary to miranda seed Emergency room, patient received an EpiPen, Pepcid and an epinephrine drip. Patient was intubated for airway protection Will continue with the epinephrine drip plus Solu-Medrol plus scheduled Pepcid and Benadryl Patient will need to follow-up with allergy as outpatient Patient will need an EpiPen upon discharge if she does not have one already SBT later today to see if patient can be extubated. 2. Suspected aspiration pneumonia Patient will be on a pulmonary toilet Aerosols And empiric Unasyn 3. DVT prophylaxis Patient will have SCDs. Patient is on Coumadin but INR has not been checked yet. Code Visit Inpatient E&M: 52173 Subs Hosp L2
--- NOTE | 2018-06-12 08:09 | PN_ITS ---
Patient Problems: Active and Suspected Problems Anaphylaxis (Acute) Depression (Acute) Subjective: Failed SBT, but may have been too sedated. Vitals/I&O's: Vital Signs Temp Pulse Resp BP Pulse Ox 36.6 C 87 12 132/90 H 98 06/12/18 06:00 06/12/18 07:10 06/12/18 07:00 06/12/18 07:00 06/12/18 07:00 Oxygen Flow Rate (L/min) 35 Oxygen Delivery Method Mechanical Ventilator Weight: 93.5 kg Body Mass Index (BMI) 32.8 Intake and Output for Last 24 Hours 06/10/18 06/11/18 06/12/18 23:59 23:59 23:59 Intake Total 379 / 379 1931 / 1931 Output Total 405 / 405 1100 / 1100 Balance -26 / - 831 / 831 General: Alert, No apparent distress, - - intubated HEENT: Atraumatic, Normocephalic Oral: Moist Mucosa, No Gingival or Mucosal Lesions/ Ulcerations Neck: No Nodes, Thyroid Normal Size and Texture Lungs: Clear to auscultation, No rhonchi, No wheeze, Diminished Cardiovascular: Regular rate, Regular Rhythm, Normal S1, Normal S2, No murmurs Abdomen: Bowel Sounds Present, Soft, Non Tender, Non-Distended, No Hepato- splenomegaly Extremities: No edema, No Calf Tenderness Skin: No rashes, No breakdown Psych/Mental Status: Normal Affect, Appropriate Laboratory Results 06/11/18 17:03: PT 18.6 H, INR 1.6 06/11/18 17:30: MRSA (PCR) Negative 06/12/18 04:10: WBC 8.5, RBC 4.29, Hgb 13.7, Hct 42.2, MCV 98.4, MCH 31.9, MCHC 32.5, RDW 13.0, RDW Differential 46.8 H, Plt Count 240, MPV 9.2 06/12/18 04:10: Sodium 143, Potassium 4.3, Chloride 109 H, Carbon Dioxide 24.0, Anion Gap 10, BUN 12, Creatinine 1.00, Estim Creat Clear Calc 63.71, Est GFR ( MDRD) Af Amer 76, Est GFR (MDRD) Non-Af 62, BUN/Creatinine Ratio 12.0, Glucose 118 H, Calcium 7.9 L 08/11/18 04:10: PT 19.2 H, INR 1.6 Current Medications Acetaminophen (Tylenol Liquid) 1,000 mg GT Q8H PRN PRN Reason: PAIN Albuterol Sulfate (Ventolin Aerosols) 2.5 mg INHALATION Q2H PRN PRN PRN Reason: SHORTNESS OF BREATH Albuterol/Ipratropium (Duoneb) 3 ml INHALATION Q6HWA.RT [facility] Chlorhexidine Gluconate () 15 ml PO BID [facility] Last Admin: 06/11/18 21:12 Dose: 15 ml Chlorhexidine Gluconate () 1 each TOPICAL DAILY [facility] Last Admin: 06/12/18 07:03 Dose: 1 each Diphenhydramine HCl (Benadryl) 50 mg IV Q6H [facility] Last Admin: 06/12/18 05:51 Dose: 50 mg Propofol (Diprivan) 1,000 mg in 100 mls @ 2.901 mls/hr CONT INF .Q12H GERARD; 5 MCG/KG/MIN PRN Reason: Protocol Last Admin: 06/12/18 02:22 Dose: 2.901 mls/hr Sodium Chloride () 1,000 mls @ 125 mls/hr IV .Q8H [facility] Last Admin: 06/12/18 07:01 Dose: 125 mls/hr Ampicillin Sodium/Sulbactam (Sodium 3 gm/ Sodium Chloride) 112 mls @ 150 mls/ hr IV Q8 [facility] Last Admin: 06/12/18 05:50 Dose: 150 mls/hr Famotidine 20 mg/ Sodium (Chloride) 10 mls @ 300 mls/hr IV Q12 [facility] Last Admin: 06/11/18 21:19 Dose: 300 mls/hr Sodium Chloride () 250 mls @ 15 mls/hr IV .[id number] PRN PRN Reason: SALINE FLUSH Fentanyl () 100 mls @ 2.5 mls/hr IV .Q40H GERARD PRN Reason: Protocol Last Admin: 06/12/18 02:23 Dose: 2.5 mls/hr Lorazepam (Ativan) 2 mg IV Q2H PRN PRN PRN Reason: ANXIETY/AGITATION Magnesium Hydroxide (Milk Of Magnesia) 30 ml PO DAILY PRN PRN PRN Reason: Constipation Methylprednisolone (Solu-Medrol) 60 mg IV Q6 [facility] Last Admin: 06/12/18 05:50 Dose: 60 mg Ondansetron HCl (Zofran) 4 mg IV Q8H PRN PRN PRN Reason: Nausea Sodium Chloride () 5 - 30 ml IV UD PRN PRN Reason: SALINE FLUSH Warfarin Sodium (Coumadin (Pbkc)) 2 mg GT DAILY@1700 [facility] Medical Necessity - Tobacco Use Smoking Status: Former smoker Tobacco Use: Cigarettes Assessment/Plan All Active Problems Anaphylaxis (Acute) Depression (Acute) 1. Anaphylaxis * Secondary to miranda seed * Emergency room, patient received an EpiPen, Pepcid and an epinephrine drip. Patient was intubated for airway protection * Will continue with the epinephrine drip plus Solu-Medrol plus scheduled Pepcid and Benadryl * Patient will need to follow-up with allergy as outpatient * Patient will need an EpiPen upon discharge if she does not have one already * SBT later today to see if patient can be extubated. 2. Suspected aspiration pneumonia * Patient will be on a pulmonary toilet * Aerosols * And empiric Unasyn 3. DVT prophylaxis * Patient will have SCDs. Patient is on Coumadin but INR has not been checked yet. Code Visit Inpatient E&M: 30289 Subs Hosp L2
[2018-06-12] MEDS: Acetaminophen 500 MG Tablet 1000 MG PO (10:24)
[2018-06-12] MEDS: DiphenhydrAMINE 25 MG Capsule 50 MG PO ×3 (11:13→23:54)
[2018-06-12] MEDS: Famotidine 20 MG Tablet PO ×2 (11:13→21:15)
[2018-06-12] MEDS: FLUoxetine 20 MG Capsule 60 MG PO (12:46)
[2018-06-12] MEDS: buPROPion (SR) 150 MG Tablet.SA PO ×2 (12:46→21:16)
--- NOTE | 2018-06-12 15:10 | CASEMGMT ---
SEE RN JOSE ASSESS LINK: D/C PLAN: Home. Intro role to FREDO GARCIA. Pt resting in bed. Son, Jackson, @ bedside. Pt states she lives with her parents, is independent w/ADL's and wishes to discharge home. Pt states she has no needs or concerns at this time. CM to follow for discharge planning needs that may arise. Nai GROSSN FREDO GARCIA
[2018-06-12] MEDS: Phenol/Sodium Phenolate 180ML 3 SPRAY MM (21:35)
[2018-06-13] VITALS (12 sets, daily range): BP systolic 94–138; BP diastolic 57–89; PULSE 67–86; RESP 11–16; TEMP 36.6–36.8; O2SAT 94–99
[2018-06-13] MEDS: 0.9% NaCl Peripheral Flush Adult/Peds IV (04:41)
[2018-06-13 05:28] LABS: International Normalized Ratio 2.2; Prothrombin Time (Protime)PT. 24.4 SECONDS (11.7-14.9)
[2018-06-13] MEDS: DiphenhydrAMINE 25 MG Capsule 50 MG PO (06:06)
--- NOTE | 2018-06-13 06:24 | PCM.PN.INT ---
Subjective: Patient did well overnight. No acute issues were reported. Patient is reporting some chest tightness, but no throat swelling has been reported. Patient has been using topical spray for throat soreness with good effect. General: Alert, Oriented x3, Cooperative, No apparent distress, Well developed, Well nourished, - - Speaking in full sentences. Obese. HEENT: Atraumatic, PERRLA, EOMI, Normocephalic, - - No scleral icterus or injection noted. Oral: Moist Mucosa, No Gingival or Mucosal Lesions/ Ulcerations Neck: Supple, No JVD, No Nodes, Trachea Midline, - - No stridor appreciated. Lungs: Clear to auscultation, Normal air movement, No rhonchi, No wheeze, No rales, - - Symmetric expansion. No dullness to percussion. Cardiovascular: Regular rate, Regular Rhythm, Normal S1, Normal S2, No murmurs, No rub noted, No Gallop Abdomen: Bowel Sounds Present, Soft, Non Tender, Non-Distended, Obese Extremities: No clubbing, No cyanosis, No edema, Capillary Refill Less than 3 Seconds Skin: No rashes, No breakdown Musculoskeletal: No Tenderness to Palpation of Joints or Extremities Lymphatic: No Cervical, Supraclavicular, or Inguinal Adenopathy Neurological: Cranial nerves II-XII grossly intact, Neuro grossly intact, Motor Exam 5/5 strength throughout Psych/Mental Status: Alert and oriented to time, place, person, mood and affect Vital Signs Temp Pulse Resp BP Pulse Ox 36.7 C 73 16 112/72 99 06/13/18 00:00 06/13/18 05:00 06/13/18 05:00 06/13/18 05:00 06/13/18 05:00 Oxygen Flow Rate (L/min) 2 Oxygen Delivery Method Room Air Weight: 96.7 kg Body Mass Index (BMI) 32.8 Intake and Output for Last 24 Hours 06/11/18 06/12/18 06/13/18 23:59 23:59 23:59 Intake Total 379 / 379 4482 / 4482 638 / 638 Output Total 405 / 405 1500 / 1500 Balance -26 / -26 2982 / 2982 638 / 638 Labs (Last 48 Hours) 06/11/18 06/11/18 06/12/18 17:03 17:30 04:10 WBC 8.5 RBC 4.29 Hgb 13.7 Hct 42.2 MCV 98.4 MCH 31.9 MCHC 32.5 RDW 13.0 RDW Differential 46.8 H Plt Count 240 MPV 9.2 PT 18.6 H INR 1.6 Sodium Potassium Chloride Carbon Dioxide Anion Gap BUN Creatinine Estim Creat Clear Calc Est GFR (MDRD) Af Amer Est GFR (MDRD) Non-Af BUN/Creatinine Ratio Glucose Calcium MRSA (PCR) Negative 06/12/18 06/12/18 06/13/18 04:10 04:10 05:00 WBC RBC Hgb Hct MCV MCH MCHC RDW RDW Differential Plt Count MPV PT 19.2 H 24.4 H INR 1.6 2.2 Sodium 143 Potassium 4.3 Chloride 109 H Carbon Dioxide 24.0 Anion Gap 10 BUN 12 Creatinine 1.00 Estim Creat Clear Calc 63.71 Est GFR (MDRD) Af Amer 76 Est GFR (MDRD) Non-Af 62 BUN/Creatinine Ratio 12.0 Glucose 118 H Calcium 7.9 L MRSA (PCR) Medical Necessity - Tobacco Use Smoking Status: Former smoker Tobacco Use: Cigarettes Assessment/Plan All Active Problems Anaphylaxis (Acute) Depression (Acute) RECOMMENDATIONS: 1. Pepcid, Benadryl and steroid therapy for a total of 5 days 2. Repeat spontaneous breathing trial later today 3. Likely okay to discontinue antibiotics 4. Okay to discharge from my perspective 5. Outpatient allergy evaluation would be indicated 6. Will sign off from a critical care perspective. IMPRESSIONS: 1. Possible anaphylactic reaction Patient extubated yesterday. No recurrence has been noted. Patient should be kept on Pepcid, Benadryl and steroid therapy for a total of 5 days. This would allow any time for the miranda pit the past. Given patient's recurrent anaphylactic reactions, allergy referral as an outpatient would be appropriate. 2. Possible aspiration pneumonia Patient has not had any leukocytosis or fever noted since acute incident. Low clinical suspicion for aspiration pneumonia at this time. Likely okay to discharge without antibiotics and close PCP follow-up. Warning signs for decompensation were reviewed with the patient. 3. Anxiety/depression Complicates care, management, recovery and prognosis. Code Visit Inpatient E&M: 77025 Subs Hosp L2
--- NOTE | 2018-06-13 08:06 | PCM.PN.HOSP ---
Patient Problems: Active and Suspected Problems Anaphylaxis (Acute) Depression (Acute) Subjective: Complains of midsternal chest pain this AM. No shortness of breath. Objective: Extubated 06/12. Vitals/I&O's: Vital Signs Temp Pulse Resp BP Pulse Ox 36.6 C 67 11 L 106/73 97 06/13/18 06:00 06/13/18 07:36 06/13/18 07:36 06/13/18 07:36 06/13/18 07:36 Oxygen Flow Rate (L/min) 2 Oxygen Delivery Method Room Air Weight: 96.7 kg Body Mass Index (BMI) 32.8 Intake and Output for Last 24 Hours 06/11/18 06/12/18 06/13/18 23:59 23:59 23:59 Intake Total 379 / 379 4482 / 4482 638 / 638 Output Total 405 / 405 1500 / 1500 Balance -26 / -26 2982 / 2982 638 / 638 General: Alert, Cooperative, No apparent distress HEENT: Atraumatic, Normocephalic Oral: Moist Mucosa, No Gingival or Mucosal Lesions/ Ulcerations Neck: No Nodes, Thyroid Normal Size and Texture Lungs: Normal air movement, - - bibasilar crackles. Cardiovascular: Regular rate, Regular Rhythm, Normal S1, Normal S2 Abdomen: Bowel Sounds Present, Soft, Non Tender, Non-Distended, No Hepato-splenomegaly Extremities: No edema, No Calf Tenderness Psych/Mental Status: Normal Affect, Appropriate Laboratory Results 06/13/18 05:00: PT 24.4 H, INR 2.2 Current Medications Acetaminophen (Tylenol) 1,000 mg PO Q8H PRN PRN PRN Reason: PAIN Last Admin: 06/12/18 10:24 Dose: 1,000 mg Albuterol Sulfate (Ventolin Aerosols) 2.5 mg INHALATION Q2H PRN PRN PRN Reason: SHORTNESS OF BREATH Bupropion HCl (Wellbutrin Sr (150mg Tablets)) 150 mg PO BID [facility] Last Admin: 06/12/18 21:16 Dose: 150 mg Chlorhexidine Gluconate () 1 each TOPICAL DAILY [facility] Last Admin: 06/12/18 07:03 Dose: 1 each Diphenhydramine HCl (Benadryl) 50 mg PO Q6 [facility] Last Admin: 06/13/18 06:06 Dose: 50 mg Famotidine (Pepcid) 20 mg PO BID [facility] Last Admin: 06/12/18 21:15 Dose: 20 mg Fluoxetine HCl (Prozac) 60 mg PO DAILY [facility] Last Admin: 06/12/18 12:46 Dose: 60 mg Ampicillin Sodium/Sulbactam (Sodium 3 gm/ Sodium Chloride) 112 mls @ 150 mls/hr IV Q8 [facility] Last Admin: 06/13/18 06:06 Dose: 150 mls/hr Sodium Chloride () 250 mls @ 15 mls/hr IV .[id number] PRN PRN Reason: SALINE FLUSH Lorazepam (Ativan) 2 mg IV Q2H PRN PRN PRN Reason: ANXIETY/AGITATION Magnesium Hydroxide (Milk Of Magnesia) 30 ml PO DAILY PRN PRN PRN Reason: Constipation Ondansetron HCl (Zofran) 4 mg IV Q8H PRN PRN PRN Reason: Nausea Phenol/Menthol (Chloraseptic (Bkc)) 3 spray MM Q2H PRN PRN PRN Reason: SORE THROAT Last Admin: 06/12/18 21:35 Dose: 3 spray Prednisone () 40 mg PO DAILY@0800 [facility] Stop: 06/17/18 08:00 Sodium Chloride () 5 - 30 ml IV UD PRN PRN Reason: SALINE FLUSH Last Admin: 06/13/18 04:41 Dose: 5 ml Warfarin Sodium (Coumadin (Pbkc)) 2 mg PO DAILY@1700 [facility] Last Admin: 06/12/18 16:07 Dose: 2 mg Medical Necessity - Tobacco Use Smoking Status: Former smoker Tobacco Use: Cigarettes Assessment/Plan All Active Problems Anaphylaxis (Acute) Depression (Acute) 1. Anaphylaxis Secondary to miranda seed Emergency room, patient received an EpiPen, Pepcid and an epinephrine drip. Patient was intubated for airway protection 5 more days of prednisone, H1 and H2 blockers Patient will need to follow-up with allergy as outpatient (hadn't seen in years since no allergic rxn, but now 2 in past 3 months) Her personal EpiPen used with this reaction, so will prescribe another. Patient intubated for airway protection, not hypoxic nor hypercapnic 2. Suspected aspiration pneumonia ruled out Patient will be on a pulmonary toilet Aerosols DC Unasyn as pt has no fever, nor leukocytosis 3. VTE: INR therapeutic previously failed on NOACs, hence, why she is on coumadin follow up INR next week. DC home.
--- NOTE | 2018-06-13 08:11 | PN_ITS ---
Patient Problems: Active and Suspected Problems Anaphylaxis (Acute) Depression (Acute) Subjective: Complains of midsternal chest pain this AM. No shortness of breath. Objective: Extubated 06/12. Vitals/I&O's: Vital Signs Temp Pulse Resp BP Pulse Ox 36.6 C 67 11 L 106/73 97 06/13/18 06:00 06/13/18 07:36 06/13/18 07:36 06/13/18 07:36 06/13/18 07:36 Oxygen Flow Rate (L/min) 2 Oxygen Delivery Method Room Air Weight: 96.7 kg Body Mass Index (BMI) 32.8 Intake and Output for Last 24 Hours 06/11/18 06/12/18 06/13/18 23:59 23:59 23:59 Intake Total 379 / 379 4482 / 4482 638 / 638 Output Total 405 / 405 1500 / 1500 Balance -26 / -26 2982 / 2982 638 / 638 General: Alert, Cooperative, No apparent distress HEENT: Atraumatic, Normocephalic Oral: Moist Mucosa, No Gingival or Mucosal Lesions/ Ulcerations Neck: No Nodes, Thyroid Normal Size and Texture Lungs: Normal air movement, - - bibasilar crackles. Cardiovascular: Regular rate, Regular Rhythm, Normal S1, Normal S2 Abdomen: Bowel Sounds Present, Soft, Non Tender, Non-Distended, No Hepato- splenomegaly Extremities: No edema, No Calf Tenderness Psych/Mental Status: Normal Affect, Appropriate Laboratory Results 06/13/18 05:00: PT 24.4 H, INR 2.2 Current Medications Acetaminophen (Tylenol) 1,000 mg PO Q8H PRN PRN PRN Reason: PAIN Last Admin: 06/12/18 10:24 Dose: 1,000 mg Albuterol Sulfate (Ventolin Aerosols) 2.5 mg INHALATION Q2H PRN PRN PRN Reason: SHORTNESS OF BREATH Bupropion HCl (Wellbutrin Sr (150mg Tablets)) 150 mg PO BID [facility] Last Admin: 06/12/18 21:16 Dose: 150 mg Chlorhexidine Gluconate () 1 each TOPICAL DAILY [facility] Last Admin: 06/12/18 07:03 Dose: 1 each Diphenhydramine HCl (Benadryl) 50 mg PO Q6 [facility] Last Admin: 06/13/18 06:06 Dose: 50 mg Famotidine (Pepcid) 20 mg PO BID [facility] Last Admin: 06/12/18 21:15 Dose: 20 mg Fluoxetine HCl (Prozac) 60 mg PO DAILY [facility] Last Admin: 06/12/18 12:46 Dose: 60 mg Ampicillin Sodium/Sulbactam (Sodium 3 gm/ Sodium Chloride) 112 mls @ 150 mls/ hr IV Q8 [facility] Last Admin: 06/13/18 06:06 Dose: 150 mls/hr Sodium Chloride () 250 mls @ 15 mls/hr IV .[id number] PRN PRN Reason: SALINE FLUSH Lorazepam (Ativan) 2 mg IV Q2H PRN PRN PRN Reason: ANXIETY/AGITATION Magnesium Hydroxide (Milk Of Magnesia) 30 ml PO DAILY PRN PRN PRN Reason: Constipation Ondansetron HCl (Zofran) 4 mg IV Q8H PRN PRN PRN Reason: Nausea Phenol/Menthol (Chloraseptic (Bkc)) 3 spray MM Q2H PRN PRN PRN Reason: SORE THROAT Last Admin: 06/12/18 21:35 Dose: 3 spray Prednisone () 40 mg PO DAILY@0800 [facility] Stop: 06/17/18 08:00 Sodium Chloride () 5 - 30 ml IV UD PRN PRN Reason: SALINE FLUSH Last Admin: 06/13/18 04:41 Dose: 5 ml Warfarin Sodium (Coumadin (Pbkc)) 2 mg PO DAILY@1700 [facility] Last Admin: 06/12/18 16:07 Dose: 2 mg Medical Necessity - Tobacco Use Smoking Status: Former smoker Tobacco Use: Cigarettes Assessment/Plan All Active Problems Anaphylaxis (Acute) Depression (Acute) 1. Anaphylaxis * Secondary to miranda seed * Emergency room, patient received an EpiPen, Pepcid and an epinephrine drip. Patient was intubated for airway protection * 5 more days of prednisone, H1 and H2 blockers * Patient will need to follow-up with allergy as outpatient (hadn't seen in years since no allergic rxn, but now 2 in past 3 months) * Her personal EpiPen used with this reaction, so will prescribe another. * Patient intubated for airway protection, not hypoxic nor hypercapnic 2. Suspected aspiration pneumonia * ruled out * Patient will be on a pulmonary toilet * Aerosols * DC Unasyn as pt has no fever, nor leukocytosis 3. VTE: * INR therapeutic * previously failed on NOACs, hence, why she is on coumadin * follow up INR next week. DC home.
--- NOTE | 2018-06-13 08:18 | PCM.DC ---
- Discharge Diagnoses Current Active Problems: Current Active and Chronic Problems Anaphylaxis (Acute) Depression (Acute) Anxiety (Chronic) You will use the following diet at home:: No restrictions, Other - no cherrys, no nuts. Your food should be the consistency of: Regular Your liquids should be the consistency of: Regular/Thin Discharge Activity: Return to Normal Activity Call your doctor if you observe: Fever of 101 or Higher, Shortness of breath, - - allergic reaction/anaphylaxis, hives, tounge/mouth swelling. Allergies/Adverse Reactions: Allergies latex Allergy (Verified 03/05/18 12:53) Unknown peanut Allergy (Verified 03/05/18 12:53) Anaphylaxis tropical fruit Allergy (Uncoded 06/11/18 17:50) Anaphylaxis Medications to take at Discharge Fluoxetine HCl [Prozac] 60 mg PO DAILY 04/30/17 Warfarin [Coumadin] 2 mg PO DAILY 04/30/17 Bupropion HCl [Wellbutrin Sr] 150 mg PO BID 03/05/18 DiphenhydrAMINE [Benadryl] 50 mg PO Q6 capsule 06/13/18 Epinephrine [Epi Pen] 0.3 mg IM DAILY PRN #1 syringe 06/13/18 Famotidine [Pepcid] 20 mg PO BID tablet 06/13/18 Prednisone 4 tab PO DAILY #20 tab 06/13/18 The following prescriptions were given: Epinephrine [Epi Pen] 0.3 mg IM DAILY PRN #1 syringe PRN Reason: Anaphylaxis Prednisone 4 tab PO DAILY #20 tab Primary Care Physician: Jay Jay Reid MD [Primary Care Provider] - Within 1 Week Test Results: Test results from this visit will be discussed in further detail at your follow-up appointment, if applicable. Please Follow Up With: cardiac cath rn When: 3-6 weeks Proposed Discharge Date: 06/13/18
--- NOTE | 2018-06-13 08:22 | DS.PCM_ITS ---
Discharge Date and Diagnosis - Problem List Patient Problems: Active and Suspected Problems Anaphylaxis (Acute) Depression (Acute) Date of Admission: 06/11/18 Date of Discharge: 06/13/18 - Primary Discharge Diagnosis Active and Suspected Problems Anaphylaxis (Acute) Depression (Acute) - Secondary Discharge Diagnosis Chronic Problems Anxiety (Chronic) Hospital Course and Treatment Imaging Results: Clinical Impression(s) from Imaging Studies Chest X-Ray 06/11/18 13:41 IMPRESSION: Possible left perihilar interstitial infiltrate. Slightly prominent central pulmonary vasculature. Nasogastric tube should be advanced another 8 to 9 cm. Electronically Signed: Luis Sidhu DO at 13:45 EDT Tel [phone], Service support , Chest X-Ray 06/11/18 15:33 IMPRESSION: Basilar interstitial prominence. Electronically Signed: Luis Sidhu DO at 19:28 EDT Tel [phone], Service support , Dr. Man Jason, [facility]. Operations: None Procedures: Intubation Summary of Care Provided: The patient is a 47 year old F with anaphylaxis after eating a miranda seed. 1. Anaphylaxis * Secondary to miranda seed * Emergency room, patient received an EpiPen, Pepcid and an epinephrine drip. Patient was intubated for airway protection * 5 more days of prednisone, H1 and H2 blockers * Patient will need to follow-up with allergy as outpatient (hadn't seen in years since no allergic rxn, but now 2 in past 3 months) * Her personal EpiPen used with this reaction, so will prescribe another. * Patient intubated for airway protection, not hypoxic nor hypercapnic 2. Suspected aspiration pneumonia * ruled out * Patient will be on a pulmonary toilet * Aerosols * DC Unasyn as pt has no fever, nor leukocytosis 3. VTE: * INR therapeutic * previously failed on NOACs, hence, why she is on coumadin * follow up INR next week. [] Discharge Diet: No Restrictions, - - no cherries, no nuts Discharge Activity: Return to Normal Activity Call your doctor if you observe: Fever of 101 or Higher, Shortness of breath, - - allergic reaction/anaphylaxis, hives, tounge/mouth swelling. Home Medications: Medications to take at Discharge Fluoxetine HCl [Prozac] 60 mg PO DAILY 04/30/17 Warfarin [Coumadin] 2 mg PO DAILY 04/30/17 Bupropion HCl [Wellbutrin Sr] 150 mg PO BID 03/05/18 DiphenhydrAMINE [Benadryl] 50 mg PO Q6 capsule 06/13/18 Epinephrine [Epi Pen] 0.3 mg IM DAILY PRN #1 syringe 06/13/18 Famotidine [Pepcid] 20 mg PO BID tablet 06/13/18 Prednisone 4 tab PO DAILY #20 tab 06/13/18 Following Prescrptions Were Given to Patient: Epinephrine [Epi Pen] 0.3 mg IM DAILY PRN #1 syringe PRN Reason: Anaphylaxis Prednisone 4 tab PO DAILY #20 tab Primary Care Physician: Jay Jay Reid MD [Primary Care Provider] - Within 1 Week Please Follow Up With: nitroglycerin nitrator operator batch When: 3-6 weeks Disposition: Home Minutes spent on discharge:: 32 Patient Condition:: Good Medical Necessity - Tobacco Use Smoking Status: Former smoker Tobacco Use: Cigarettes Meaningful Use Info Meaningful Use Diagnoses (Choose all that apply): None applicable Code Visit Inpatient E&M: 59218 Disch Hosp
[2018-06-13] MEDS: predniSONE 20 MG Tablet 40 MG PO (08:51)
== END 2018-06-13 09:10 | disposition home or self-care (01) | DRG 916 ==
LOC: ED 13:42 → ICU 14:27
PROVIDERS: Internal Medicine Critical Care Medicine; Emergency Provider Emergency Medicine; Family Provider Family Medicine; PCP Family Medicine
DX: T78.05XA Anaphylactic reaction due to tree nuts and seeds, initial encounter (principal); F33.40 Major depressive disorder, recurrent, in remission, unspecified; Z87.891 Personal history of nicotine dependence; F41.9 Anxiety disorder, unspecified
CPT/HCPCS: 31500; 31720; 36415; 36600; 71045; 80048; 82803; 85025; 85027; 85610; 87641; 93005; 94002; 94003; 94660; 94770; 95831; 97802; 99251; 99285; J7030; J7050; A4216; G0463; J0295; J3490

== ENCOUNTER → 2018-06-24 13:51 | Outpatient (CLI) | payer BC, SELFPAY ==
[2018-06-29 03:07] LABS: Alternaria alternata <0.10 kU/L (Class 0); Aspergillus fumigatus <0.10 kU/L (Class 0); Bahia Grass <0.10 kU/L (Class 0); Beef <0.10 kU/L (Class 0); Bermuda Grass <0.10 kU/L (Class 0); Bluegrass, Kentucky <0.10 kU/L (Class 0); Cat Hair/Dander, Standard <0.10 kU/L (Class 0); Cedar, Mountain <0.10 kU/L (Class 0); Cladosporium herbarum 0.38 kU/L (Class I); Cockroach, American 0.34 kU/L (Class I); Corn <0.10 kU/L (Class 0); D farinae Mite 1.05 kU/L (Class II); Dog Epithelia <0.10 kU/L (Class 0); Egg, Whole <0.10 kU/L (Class 0); Elm, American White <0.10 kU/L (Class 0); Hazelnut Tree <0.10 kU/L (Class 0); Hickory, White <0.10 kU/L (Class 0); Johnson Grass <0.10 kU/L (Class 0); Maple/Box Elder <0.10 kU/L (Class 0); Milk (Cow) <0.10 kU/L (Class 0); Mucor racemosus <0.10 kU/L (Class 0); Mugwort <0.10 kU/L (Class 0); Mulberry, White <0.10 kU/L (Class 0); Nettle 0.16 kU/L (Class 0/I); Peanut <0.10 kU/L (Class 0); Penicillium chrysogen <0.10 kU/L (Class 0); Pigweed, Rough <0.10 kU/L (Class 0); Plantain, English <0.10 kU/L (Class 0); Pork <0.10 kU/L (Class 0); Ragweed, Short/Common <0.10 kU/L (Class 0); Sheep Sorrel(Dock) <0.10 kU/L (Class 0); Soybean <0.10 kU/L (Class 0); Stemphylium herbarum <0.10 kU/L (Class 0); Sweet Gum <0.10 kU/L (Class 0); Sycamore, American <0.10 kU/L (Class 0); Wheat <0.10 kU/L (Class 0)
[2018-06-29 10:45] LABS: Chocolate <0.10 kU/L (Class 0)
== END ==
PROVIDERS: Family Provider Family Medicine; PCP Family Medicine; Visit Provider Family Medicine
DX: T78.40XA Allergy, unspecified, initial encounter (principal)
CPT/HCPCS: 36415; 86003; 86005

== ENCOUNTER → 2018-08-02 16:58 | Outpatient (CLI) | payer BC, SELFPAY ==
[2018-08-02 17:52] LABS: Prothrombin Time (Protime)PT. 53.2 SECONDS (11.7-14.9)
[2018-08-02 18:06] LABS: International Normalized Ratio 5.9
== END ==
PROVIDERS: Family Provider Family Medicine; PCP Family Medicine; Visit Provider Family Medicine
DX: I82.409 Acute embolism and thrombosis of unspecified deep veins of unspecified lower extremity (principal)
CPT/HCPCS: 36415; 85610

== ENCOUNTER → 2018-08-11 09:35 | Outpatient (CLI) | payer BC, SELFPAY ==
--- NOTE | 2018-08-11 09:40 | RAD_ITS ---
STUDY: X-RAY - ABDOMEN/PELVIS REASON FOR EXAM: Female, 48 years old. LEFT SIDE KIDNEY STONE, HX NUMEROUS STONES, PAIN FEELS SAME TECHNIQUE: Single AP view of the abdomen / pelvis. COMPARISON: None. FINDINGS: Normal visualized lung bases. Patient is wearing a bra. There is an unremarkable bowel gas pattern. There is no demonstrated free abdominal air. The visualized liver, spleen and kidneys are grossly normal in size and morphology. There are calcified phleboliths in the pelvis. Mild curvature of the lumbar spine convex right noted. There appears lower lumbar facet arthropathy. Mild sclerosis of the symphysis pubis noted consistent with osteitis. On one of the 2 views it appeared that there may be a calcification overlying the lower pole the left kidney but this was not identified on the second view and thought therefore to represent debris within the colon. RAD/Abdomen Single View IMPRESSION: Normal x-ray examination of the abdomen and pelvis. No definitive stones of renal origin. There are multiple phleboliths in the deep pelvis. If there is concern regarding renal obstruction, noncontrast CT exam may be of benefit. Electronically Signed: Zehra Flynn MD at 10:04 EDT , Service support ,
--- NOTE | 2018-08-11 11:19 | CT_ITS ---
STUDY: CT ABDOMEN AND PELVIS WITHOUT CONTRAST REASON FOR EXAM: Female, 48 years old. LEFT FLANK PAIN. HX OF [facility] RADIATION DOSAGE (If Supplied By Facility): CTDIvol = ( 11.42 ) mGy, DLP = ( 616.29 ) mGycm TECHNIQUE: Transaxial images were obtained from the dome of the diaphragm to the symphysis pubis without oral contrast, and without intravenous contrast. Sagittal and coronal images were reconstructed. Individualized dose optimization techniques were used for this CT. COMPARISON: July 06, 2014 FINDINGS: The visualized lung bases are unremarkable. The visualized portions of the heart are within normal limits. Normal liver. The gallbladder is contracted. No biliary ductal dilatation. Normal spleen. Splenule is noted in the splenic hilar region. Normal pancreas. Normal bilateral adrenal glands. The right kidney appears mildly atrophic. There is nephrolithiasis associated with the left kidney with nonobstructing calculus in association with the lower pole measuring approximately 3.5 x 2 mm. There is mild hydronephrosis and prominent distention of the renal pelvis. There is a punctate calcification seen at the ureteropelvic junction and I am also suspicious of congenital UPJ obstruction. The distal left ureter is also dilated with obstructing distal left ureterovesical junction calculus measuring approximately 4 mm. Normal visualized stomach. Normal small intestine. Normal colon. The appendix is visualized and appears normal. There is diffuse atherosclerotic calcification of the abdominal aorta, without a demonstrated aneurysm. Normal inferior vena cava. Normal retroperitoneum. Normal urinary bladder. There does appear minimal ossification associated with the anterior wall of the urinary bladder, nonspecific. Differential considerations include chronic infection, cystitis post radiation, 48, therapy, cystitis, schistosomiasis and tuberculosis. Consider cystoscopy to rule out neoplasia. The uterus appears absent. No deep pelvic mass. Normal abdominal wall. Normal osseous structures. CT/Abdomen/Pelvis without Cont IMPRESSION: * There is an obstructing distal left ureterovesical junction calculus measuring approximately 4 mm. 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 * The right kidney is atrophic. * Urinary bladder wall calcification that is nondependent. See above differential considerations. Clinical correlation recommended. * See above for additional findings. Electronically Signed: Zehra Flynn MD at 12:01 EDT , Service support ,
== END ==
LOC: MTRAD 10:52 → CT 10:54
PROVIDERS: Family Provider Family Medicine; PCP Family Medicine; Referring Provider Nurse Practitioner Family; Visit Provider Nurse Practitioner Family
DX: N20.0 Calculus of kidney (principal)
CPT/HCPCS: 74018; 74176

== ENCOUNTER → 2021-01-25 11:18 | Outpatient (CLI) | payer SELFPAY ==
[2018-06-11 14:41] VITALS: BMI 32.8
[2021-01-28 12:33] LABS: ANTINUCLEAR ANTIBODIES DIRECT Negative (Negative)
== END ==
LOC: MFPLAB 11:19
PROVIDERS: PCP Family Medicine; Referring Provider Family Medicine; Visit Provider Family Medicine
DX: M25.50 Pain in unspecified joint (principal)
CPT/HCPCS: 36415; 86038

== ENCOUNTER → 2022-08-15 | Outpatient (CLI) | payer OTHER, SELFPAY ==
--- NOTE | 2022-08-15 12:33 | ART_ITS ---
Reason For Study: Decreased Pedal Pulses Procedure A bilateral lower extremity continuous wave Doppler with analog waveform analysis,segmental pressures,and ankle brachial indexes with exercise. Left Segmental Pressures Left brachial= 117mmHg. Left posterior tibial artery = 120mmHg. Left dorsalis pedis artery = 115mmHg. The left posterior tibial artery waveforms are triphasic. The left dorsalis pedis waveforms are triphasic. Right Segmental Pressures Right brachial= 112mmHg. Right posterior tibial artery = 129mmHg. Right dorsalis pedis artery = 115mmHg. The right posterior tibial artery waveforms are triphasic. The right dorsalis pedis waveforms are triphasic. Indices The right ankle brachial index by the posterior tibial artery is 1.03. The right ankle brachial index by the dorsalis pedis is 0.98. The right post exercise ankle brachial index is 1.23. The left ankle brachial index by the posterior tibial artery is 1.10. The left ankle brachial index by the dorsalis pedis is 0.98. The left posterior tibial artery index post exercise is 1.14. VL/Lower Ext Art Exam w/ Exercise Interpretation Summary Triphasic Doppler waveforms are noted at ankle level bilaterally. Pulse-volume recordings appear satisfactory at low thigh, calf, and ankle level bilaterally. Resting ankle-bra chial indices are normal bilaterally. Following a period of exercise, ankle pressures augment eduardo aterally, a normal physiological response. There is no evidence of significant arterial occlusive disease in the lower ext remities bilaterally. Ordering Physician: Jay Jay Reid Referring Physician: JAY JAY REID MD Performed By: [facility] STEPH[facility]
== END | disposition home or self-care (01) ==
PROVIDERS: PCP Family Medicine; Referring Provider Family Medicine; Visit Provider Family Medicine
DX: R20.9 Unspecified disturbances of skin sensation (principal)
CPT/HCPCS: 93924